=== PATIENT | male | born 1995 | race Caucasian/White ===

== ENCOUNTER → 2018-07-15 | Outpatient (CLI) | payer BC ==
--- NOTE | 2018-07-15 18:21 | RAD ---
PQRS Compliance statement: One or more of the following individualized dose reduction techniques were utilized for this examination: 1. Automated exposure control. 2. Adjustment of the mA and/or kV according to patient size. 3. Use of iterative reconstruction technique. Indication:LEFT SIDE CHEST AND RIB PAIN FROM FALL ONE WEEK AGO.PT SHIELDED TECHNIQUE: CT chest without IV contrast with multiplanar reformats. COMPARISON:None FINDINGS: Heart is normal in size. No pericardial or pleural effusion. No enlarged axillary, mediastinal lymph nodes. Evaluation of hilar lymphadenopathy is limited due to lack of IV contrast. Central airways are patent. No pneumothorax or focal consolidation in the lungs. Visualized noncontrast sections through the liver, spleen, gallbladder, pancreas, adrenals and kidneys within normal limits. No acute fractures. IMPRESSION: No acute findings. Electronically signed by: Uriah Puckett DO (07/15/2018 6:18 PM) [facility]
== END | disposition home or self-care (01) ==
LOC: CT 17:35
PROVIDERS: ATTEND Family Medicine
DX: R07.89 Other chest pain (principal)
CPT/HCPCS: 71250

== ENCOUNTER 2020-01-24 23:49 | Emergency (ER) | payer BC ==
[~2020-01-24] VITALS: Ht 172.7 cm; Wt 94.8 kg
--- NOTE | 2020-01-25 00:09 | PHYS DOC ---
Past History Past Medical History: Asthma, Other Past Surgical History: No Surgical History Smoking: Non-smoker Alcohol Use: None Drug Use: None Adult General Chief Complaint Chief Complaint: CHEST PAIN HPI HPI Patient is a 24-year-old male who presents for chest pain. Onset was less than 1 hour ago and wake him from sleep. Nothing known makes better, deep breaths and physical exertion make worse. Pain described as substernal pressure, no actual pain, with radiation to left upper extremity. Timing of symptoms has been constant since onset. Associated symptoms include feeling anxious, left upper extremity paresthesias, and nausea. Patient denies any fever, URI-like symptoms, wheezes or productive cough, abdominal pain, changes in bladder or bowel function, no COVID-19 contacts, no recent travel, no hemoptysis, no drug use. Patient has history of ER visits for chest pain. He was last seen at our facility in 2013 for this. He reports that same year being seen and admitted at [facility], he reports having Holter monitor on discharge that was ultimately unremarkable. He is never had a cardiac echo, catheterization, or other advanced studies. Patient reports his mother has CAD, no immediate family member with heart attack less than 55 years old, but admits heart problems run deep in both mother and father's lineage Review of Systems Review of Systems Fourteen body systems of review of systems have been reviewed. See HPI for pertinent positives and negative responses, other tucker all other systems are negative, non-pertinent or non-contributory Allergies Allergies Allergies Coded Allergies Type Severity Reaction Last Updated Verified No Known Drug Allergies 06/06/14 No Physical Exam Physical Exam Constitutional: Well developed, well nourished, no acute distress, non-toxic appearance. HENT: Normocephalic, atraumatic, bilateral external ears normal, oropharynx moist, no oral exudates, nose normal. Eyes: PERRLA, EOMI, conjunctiva normal, no discharge. Neck: Normal range of motion, no tenderness, supple, no stridor. Cardiovascular: Heart rate regular, sinus rhythm, no murmurs rubs or gallops. Nontender chest wall Lungs & Thorax: Bilateral breath sounds clear to auscultation Abdomen: Bowel sounds normal, soft, no tenderness, no masses, no pulsatile masses. Nonsurgical abdomen, no peritoneal signs Skin: Warm, dry, no erythema, no rash. Back: No tenderness, no CVA tenderness. Extremities: No tenderness, no cyanosis, no clubbing, ROM intact, no edema. Neurologic: Alert and oriented X 3, grossly normal motor & sensory function, no focal deficits noted. Psychologic: Affect normal, judgement normal, anxious mood Current Patient Data Vital Signs Vital Signs Date Time Temp Pulse Resp B/P (MAP) Pulse Ox O2 Delivery O2 Flow Rate FiO2 01/25/20 00:13 98.1 64 18 146/78 (100) 98 Room Air Lab Results Laboratory Tests Test 01/25/20 00:30 White Blood Count 5.9 x10^3/uL (4.0-11.0) Red Blood Count 4.87 x10^6/uL (4.30-5.70) Hemoglobin 14.9 g/dL (13.0-17.5) Hematocrit 43.5 % (39.0-53.0) Mean Corpuscular Volume 89 fL (79-100) Mean Corpuscular Hemoglobin 31 pg (25-35) Mean Corpuscular Hemoglobin Concent 34 g/dL (31-37) Red Cell Distribution Width 13.6 % (11.5-14.5) Platelet Count 182 x10^3/uL (140-400) Neutrophils (%) (Auto) 44 % (31-73) Lymphocytes (%) (Auto) 33 % (24-48) Monocytes (%) (Auto) 19 % (0-9) Eosinophils (%) (Auto) 3 % (0-3) Basophils (%) (Auto) 1 % (0-3) Neutrophils # (Auto) 2.6 x10^3uL (1.8-7.7) Lymphocytes # (Auto) 2.0 x10^3/uL (1.0-4.8) Monocytes # (Auto) 1.1 x10^3/uL (0.0-1.1) Eosinophils # (Auto) 0.2 x10^3/uL (0.0-0.7) Basophils # (Auto) 0.1 x10^3/uL (0.0-0.2) Segmented Neutrophils % 50 % (35-66) Lymphocytes % 34 % (24-48) Monocytes % 13 % (0-10) Eosinophils % 3 % (0-5) Platelet Estimate Adequate (ADEQUATE) Sodium Level 137 mmol/L (136-145) Potassium Level 3.5 mmol/L (3.5-5.1) Chloride Level 103 mmol/L (98-107) Carbon Dioxide Level 26 mmol/L (21-32) Anion Gap 8 (6-14) Blood Urea Nitrogen 11 mg/dL (8-26) Creatinine 1.1 mg/dL (0.7-1.3) Estimated GFR (Cockcroft-Gault) 83.0 BUN/Creatinine Ratio 10 (6-20) Glucose Level 105 mg/dL (70-99) Calcium Level 9.2 mg/dL (8.5-10.1) Total Bilirubin 2.0 mg/dL (0.2-1.0) Aspartate Amino Transf (AST/SGOT) 12 U/L (15-37) Alanine Aminotransferase (ALT/SGPT) 18 U/L (16-63) Alkaline Phosphatase 77 U/L (46-116) Troponin I Quantitative < 0.017 ng/mL (0-0.055) Total Protein 7.4 g/dL (6.4-8.2) Albumin 3.7 g/dL (3.4-5.0) Albumin/Globulin Ratio 1.0 (1.0-1.7) Lipase 47 U/L (73-393) EKG EKG EKG ordered and interpreted by myself at 0006 hours as sinus rhythm at 61 bpm, unremarkable intervals, no axis deviation, no acute ischemic findings, no STEMI. This EKG was compared to prior study performed 06/29/2013 and unchanged Radiology/Procedures Radiology/Procedures 1 view chest radiograph obtained and interpreted by myself as no acute cardiopulmonary process Course & Med Decision Making Course & Med Decision Making Well-appearing ambulatory patient seen on immediate ER arrival ABCs non-concerning Comprehensive history and physical exam obtained, subsequent diagnostic studies ordered ER work-up reviewed, grossly non-concerning for any surgical or other emergent processes Discussed most likely diagnosis of noncardiac in origin chest pain, no further indication for work-up in ER at this time I discussed need to follow-up with PCP in upcoming 3 to 10 days time for continued outpatient work-up. I feel patient would benefit from further cardiac testing such as echocardiogram given family history of heart disease Strict return precautions discussed with good understanding by patient, all questions and concerns addressed prior to ER departure in stable condition Nellie Disclaimer Dragon Disclaimer This electronic medical record was generated, in whole or in part, using a voice recognition dictation system. The HEART Score for CP Pts HEART Score for Chest Pain: HEART Score for Chest Pain Response (Comments) Value History Slighlty/Non-Suspicious 0 ECG Normal 0 Age < 45 0 Risk Factors 1 or 2 Risk Factors 1 Troponin < Normal Limit 0 Total 1 Risk Factors: Risk Factors: DM, Current or recent (<one month) smoker, HTN, HLP, family history of CAD, obesity. Risk Scores: Score 0 - 3: 2.5% MACE over next 6 weeks - Discharge Home Score 4 - 6: 20.3% MACE over next 6 weeks - Admit for Clinical Observation Score 7 - 10: 72.7% MACE over next 6 weeks - Early Invasive Strategies Departure Departure: Impression: Primary Impression: Chest pain Disposition: 01 HOME/RESIDENCE PRIOR TO ADM Condition: STABLE Referrals: ANAMARIA CHRISTINE MD (PCP) Patient Instructions: Chest Pain (Nonspecific) Justification of Admission: Justification of Admission: Justification of Admission Dx: N/A HARJEET SANTANA DO Jan 25, 2020 00:09
--- NOTE | 2020-01-25 00:09 | EKG ---
[facility] ED [facility] [address] [place] [id number] Test Date: 2020-01-25 Test Time: 00:03:42 Pat Name: HAY BENITES Department: Room: Gender: M [employer]: : 1995 Requested By: HARJEET SANTANA Order Number: [id number] Reading MD: Measurements Intervals Lerna Rate: 61 P: 45 ND: 178 QRS: 90 QRSD: 98 T: 34 QT: 376 QTc: 384 Interpretive Statements SINUS RHYTHM NORMAL ECG RI6.02 No previous ECG available for comparison
[2020-01-25 00:45] LABS: BASO # 0.1 x10^3/uL (0.0-0.2); BASO % 1 % (0-3); EOS # 0.2 x10^3/uL (0.0-0.7); EOS % 3 % (0-3); HEMATOCRIT 43.5 % (39.0-53.0); HEMOGLOBIN 14.9 g/dL (13.0-17.5); LYMPH % 33 % (24-48); MEAN CORPUSCULAR HEMOGLOBIN 31 pg (25-35); MEAN CORPUSCULAR HGB CONC 34 g/dL (31-37); MEAN CORPUSCULAR VOLUME 89 fL (79-100); MONO # 1.1 x10^3/uL (0.0-1.1); MONO % 19 % (0-9); NEUT # 2.6 x10^3uL (1.8-7.7); NEUT % 44 % (31-73); PLATELET COUNT 182 x10^3/uL (140-400); RED BLOOD COUNT 4.87 x10^6/uL (4.30-5.70); RED CELL DISTRIBUTION WIDTH 13.6 % (11.5-14.5); WHITE BLOOD COUNT 5.9 x10^3/uL (4.0-11.0)
[2020-01-25 00:54] LABS: CALCIUM 9.2 mg/dL (8.5-10.1); CREATININE 1.1 mg/dL (0.7-1.3); POTASSIUM 3.5 mmol/L (3.5-5.1)
[2020-01-25 01:00] LABS: ALBUMIN 3.7 g/dL (3.4-5.0); TOTAL PROTEIN 7.4 g/dL (6.4-8.2)
[2020-01-25 01:09] LABS: % EOS 3 % (0-5); % LYMPHS 34 % (24-48); % MONOS 13 % (0-10); % SEGS 50 % (35-66); PLT ESTIMATE ADEQUATE (ADEQUATE)
[2020-01-25 01:15] VITALS: BP 142/79
--- NOTE | 2020-01-25 02:32 | RAD ---
CHEST AP ONLY Clinical Indication: Chest pain Comparison: None. Findings: The cardiomediastinal silhouette is normal. Lungs are clear. There is no pneumothorax. No pleural effusion is appreciated. No acute bone abnormality. IMPRESSION: No acute cardiopulmonary process. Electronically signed by: Bill Houston MD (01/25/2020 2:29 AM) [facility]
== END 2020-01-25 01:30 | disposition home or self-care (01) ==
LOC: ER 23:49
DX: R07.2 Precordial pain (principal); R20.2 Paresthesia of skin; J45.909 Unspecified asthma, uncomplicated
CPT/HCPCS: 36415; 71045; 80053; 83690; 84484; 85007; 85025; 93005; 99285